=== PATIENT | male | born 1995 | race Caucasian/White ===

== ENCOUNTER 2022-12-29 09:33 | Emergency (ER) | payer BC, MEDICAID ==
[~2022-12-29] VITALS: Ht 185.4 cm; Wt 97.7 kg
[2022-12-29 09:53] LABS: BASOPHILS # (AUTO) 0.1 X10'3 (0-0.2); BASOPHILS % (AUTO) 0.9 % (0-1); EOSINOPHILS % (AUTO) 0.5 % (0-6); HEMATOCRIT 45.5 % (42.0-52.0); HEMOGLOBIN 15.8 g/dl (14.0-17.9); LYMPHOCYTES # (AUTO) 1.6 X10'3 (1.1-4.8); LYMPHOCYTES % (AUTO) 19.8 % (21-51); MEAN CORPUSCULAR HEMOGLOBIN 31.6 PG (27.0-31.0); MEAN CORPUSCULAR HGB CONC 34.7 g/dL (33.0-36.5); MEAN CORPUSCULAR VOLUME 91.2 FL (78-98); MEAN PLATELET VOLUME 7.5 FL (7.4-10.4); MONOCYTES # (AUTO) 0.7 X10'3 (0-0.9); MONOCYTES % (AUTO) 8.2 % (2-12); NEUTROPHILS # (AUTO) 5.8 X10'3 (1.8-7.7); NEUTROPHILS % (AUTO) 70.6 % (42-75); PLATELET COUNT 275 X10'3 (140-440); RED BLOOD COUNT 4.99 X10'6 (4.70-6.10); RED CELL DISTRIBUTION WIDTH 12.9 % (11.5-14.5); WHITE BLOOD COUNT 8.3 X10'3 (4.5-11.0)
[2022-12-29 10:25] LABS: ALBUMIN 4.4 G/DL (3.4-5.0); ALBUMIN/GLOBULIN RATIO 1.7 (1.1-1.5); ALKALINE PHOSPHATASE 75 IU/L (46-116); ASPARTATE AMINO TRANSFERASE 18 U/L (10-37); BILIRUBIN,TOTAL 0.7 MG/DL (0.1-1.0); BLOOD UREA NITROGEN 11 MG/DL (7-18); BUN/CREATININE RATIO 12.4 (10.0-20.0); CALCIUM 9.2 MG/DL (8.5-10.1); CHLORIDE 102 MMOL/L (99-107); CREATININE 0.89 MG/DL (0.60-1.10); GLUCOSE 99 MG/DL (70-104); MAGNESIUM 1.8 MG/DL (1.5-2.4); POTASSIUM 4.2 MMOL/L (3.5-5.1); TOTAL CARBON DIOXIDE 32.8 MMOL/L (24-32); eGFR > 90 ML/MIN
[2022-12-29 10:37] LABS: ALANINE AMINOTRANSFERASE < 6 U/L (12-78); ANION GAP 3 (8-16); SODIUM 138 MMOL/L (135-145)
[2022-12-29] MEDS ORDERED: IBUP-1986 PO (10:54)
[2022-12-29] MEDS ORDERED: ketorolac trometh inj. 60 MG/2 ML VIAL IM ONE (11:00)
[2022-12-29 11:15] VITALS: BP 109/68
== END 2022-12-29 11:17 | disposition home or self-care (01) ==
LOC: ER 09:34
DX: R07.89 Other chest pain (principal); Z87.442 Personal history of urinary calculi; Z79.899 Other long term (current) drug therapy
CPT/HCPCS: 36415; 71045; 80053; 83735; 83880; 84484; 85025; 93005; 99285

== ENCOUNTER 2025-03-08 18:30 | Emergency (ER) | payer BC ==
[~2025-03-08] VITALS: Ht 185.4 cm; Wt 90.0 kg
[~2025-03-08 18:30] MED LIST: IBUP-1986 PO
[2025-03-08 18:49] VITALS: BP 129/75; PULSE 71; RESP 16; TEMP 98.6; O2SAT 98
[2025-03-08] MEDS ORDERED: AMOX500C2 PO (19:37)
--- NOTE | 2025-03-08 19:38 | Physician Documentation ---
HPI ~ General Chief Complaint: Tooth Problem Stated Complaint: TOOTH PAIN Time Seen by MD: 19:14 Primary Medical Doctor: BETI History of Present Illness HPI Comment Patient reports dental pain and bleeding in the upper left molar region. He states he has not put in his dentist on Wednesday however denies any fevers or nausea vomiting or any submandibular swelling Medication Reconciliation Allergies: Coded Allergies: No Known Allergies (Unverified , 03/08/25) Scheduled Ibuprofen (Ibuprofen), 1 TAB PO Q8H Past Medical History Past Medical History: No Pertinent History Past Surgical History: no surgical history Alcohol Use: None Drug Use: none Lives In: Home Occupation: employed Physical Exam Vital Signs: Temperature: 98.6, Source: Temporal, Heart Rate: 71, Respiratory Rate: 16, BP: 129/75, Pulse Oximetry: 98, Weight: 90.000 Oxygen Flow Rate: 0 Physical Exam HEENT: PERRL, EOMI, no injection, moist mucous membranes. Poor dentition t hroughout oral cavity. Notable erythema and swelling in the upper left molar region Respiratory: Lungs clear, no respiratory distress. Cardiovascular: Regular rate and rhythm, no murmurs. Skin: Normal color, warm and dry. No edema, no ecchymosis. Progress Results/Orders Results/Orders Vital Signs 03/08/25 18:49 Temp 98.6 Pulse 71 Resp 16 B/P (MAP) 129/75 Pulse Ox 98 O2 Flow Rate 0 Medical Decision Making Findings Suspecting a developing tooth abscess going to treat empirically. Patient states he has a an appointment with a dentist on Wednesday Differential Dx:Considerations: Include: Alveolar fracture, Alveolar osteitis, ANUG, Facial Cellulitis, Periapical abscess, Peridontal abscess, Post-extraction bleeding, Pulpitis, Tooth avulsion, Tooth eruption, Tooth Fracture, Trigeminal neuralgia, Tooth subluxation, Other Departure Disposition: 01 HOME / SELF CARE / HOMELESS Impression: Primary Impression: Dental abscess Condition: Stable Discharge Instructions: Dental Caries, Adult Referrals: NO PRIMARY CARE PROVIDER (PCP) Prescriptions Amoxicillin Trihydrate* (Amoxicillin*) 500 Mg Capsule 1 CAP PO Q8H for 10 Days, #30 CAP Prov: IFEANYI BOWMAN NP 03/08/25 Education Educated: Patient Signature Scribe Signature: g Attestation: Scribed for Ifeanyi Bowman Spring Forger by Ifeanyi Beverly NP . 03/08/25 19:37 IFEANYI BOWMAN NP Mar 08, 2025 19:38
== END 2025-03-08 20:08 | disposition home or self-care (01) ==
LOC: ER 18:30
DX: K04.7 Periapical abscess without sinus (principal); Z79.899 Other long term (current) drug therapy
CPT/HCPCS: 99283

== ENCOUNTER 2025-05-18 14:00 | Emergency (ER) | payer BC ==
[~2025-05-18] VITALS: Ht 185.4 cm; Wt 95.7 kg
[2025-05-18 14:02] VITALS: BP 140/92; PULSE 110; TEMP 97.1; O2SAT 99
--- NOTE | 2025-05-18 14:10 | Physician Documentation ---
History of Present Illness ~ Stated Complaint: CP ARM TIGHTNESS DIZZINESS Time Seen by MD: 15:06 Primary Medical Doctor: BETI VIDES 29 Male with complaints of chest pain that has been intermittent for approximately 2 weeks this last episode lasting since Wednesday but constant. Patient states there has been times that his pain was reproducible with movement and breathing. Patient also states that he feels like his heart rate is elevated and checks his watch routinely currently he states his heart rate on his watch his 113. Patient himself does not have any cardiac or respiratory history but states he has strong family history with his mom having a pacemaker. Medication Reconciliation Allergies: Coded Allergies: No Known Allergies (Unverified , 05/18/25) Scheduled Ibuprofen (Ibuprofen), 1 TAB PO Q8H Past Medical History Past Medical History: No Pertinent History Past Surgical History: no surgical history Alcohol Use: None Drug Use: none Lives In: Home Occupation: employed Physical Exam Physical Exam General: Alert, no apparent distress. HEENT: moist mucous membranes. Neck: Full range of motion. Respiratory: No respiratory distress speaking in full sentences Chest: No accessory muscle use. Cardiovascular: Appears well perfused Neurologic: Oriented x4. Psychiatric: Normal mood and affect. Skin: Normal color, warm and dry. No edema, no ecchymosis. Progress Results/Orders Results/Orders Orders - DEE THAPA INK MAKER Chest,Single View (05/18/25 14:14) Monitor (05/18/25 14:14) Saline Lock (05/18/25 14:14) Oxygen (05/18/25 14:14) Hs Troponin I W Calculations (05/18/25 17:14) Completed Orders - DEE THAPA INK MAKER Chest,Single View (05/18/25 14:14) Cbc/Diff (05/18/25 14:14) BMP (05/18/25 14:14) PBNP (05/18/25 14:14) Electrocardiogram (05/18/25 14:14) Hs Troponin I W Calculations (05/18/25 14:14) Hs Troponin I W Calculations (05/18/25 16:14) Vital Signs 05/18/25 05/18/25 14:02 16:58 Temp 97.1 Pulse 110 Resp 16 14 B/P (MAP) 140/92 Pulse Ox 99 O2 Flow Rate 0 Laboratory Tests Test 05/18/25 14:09 05/18/25 16:12 White Blood Count 7.4 Red Blood Count 5.13 Hemoglobin 16.1 Hematocrit 45.5 Mean Corpuscular Volume 88.7 Mean Corpuscular Hemoglobin 31.3 H Mean Corpuscular Hemoglobin Concent 35.3 Red Cell Distribution Width 13.1 Platelet Count 292 Mean Platelet Volume 7.3 L Neutrophils (%) (Auto) 66.2 Lymphocytes (%) (Auto) 22.4 Monocytes (%) (Auto) 9.6 Eosinophils (%) (Auto) 0.6 Basophils (%) (Auto) 1.2 H Neutrophils # (Auto) 4.9 Lymphocytes # (Auto) 1.6 Monocytes # (Auto) 0.7 Eosinophils # (Auto) 0.0 Basophils # (Auto) 0.1 CBC Comment Sodium Level 141 Potassium Level 4.4 Chloride Level 103 Carbon Dioxide Level 31.9 Anion Gap 6 L Blood Urea Nitrogen 13 Creatinine 0.89 Estimated GFR/1.73 m2 > 90 BUN/Creatinine Ratio 14.6 Glucose Level 94 Calcium Level 9.0 Troponin I High Sensitivity 4 4 Pro-B-Type Natriuretic Peptide 49 Albumin 4.4 Chemistry Comments Troponin I High Sens Percent Delta 0 Troponin I Hi Sens Absolute Change 0 EKG/XRAY/CT/US/VASC/MRI EKG : Additional Comment EKG: Sinus rhythm at 99 beats per minute normal axis no acute ST-T abnormalities Chest X-Ray : Additional Comments DI CHEST,SINGLE VIEW, HISTORY: CP COMPARISON: None None TECHNICAL DATA: 1 view of the chest was obtained. FINDINGS: Lines and tubes: None Cardiomediastinal silhouette: normal Pulmonary vasculature: normal Lung expansion: normal Lung airspace: normal Lung interstitium: normal Pleura: normal Pneumothorax: no Bones: Unremarkable Other: no IMPRESSION: No acute intrathoracic abnormality. Heart Score: Heart Score Response (Comments) Value History Slightly Suspicious 0 EKG Normal 0 Age <45 0 Risk Factors No known risk factors 0 Troponin Normal limit 0 Total 0 Medical Decision Making Findings Patient has a heart score 0 patient's labs are unremarkable for any significant findings chest x-ray is clear. Troponins are negative. This could be costochondritis as there has been a time where his chest pain was reproducible. It has been intermittent for the past couple weeks but steady since Wednesday. Patient's vital signs are also reassuring. We will discharge to follow up with primary care for potential cardiac workup if desired Departure Time of Disposition: 16:45 Disposition: 01 HOME / SELF CARE / HOMELESS Impression: Primary Impression: Chest wall pain Condition: Stable Discharge Instructions: Nonspecific Chest Pain, Adult Additional Instructions: Labs do not indicate any cardiac stress your chest x-ray is negative and your EKG looks good. At this time it does not appear to be an emergent cardiac experience that is causing your chest pain. Due to your family history I would advise you to follow up with primary care for potentially a cardiology referral to evaluate for cardiac workup due to your family history. Rest and stay well hydrated feel free to return to the ER for any new or worsening symptoms Referrals: NO PRIMARY CARE PROVIDER (PCP) Education Educated: Patient, Family Educated regarding: diagnosis, treatment, need for follow up Signature Scribe Signature: No scribe Attestation: The note accurately reflects work and decisions made by me.Dee KIRK 05/18/25 16:46 DEE THAPA NP May 18, 2025 14:10
--- NOTE | 2025-05-18 14:16 | ELECTROCARDIOGRAPH REPORT ---
[facility] Test Date: 2025-05-18 Test Time: 14:05:21 Pat Name: JACOB TOUSSAINT Department: EMERGENCY ROOM Room: Gender: M [employer] Technician: LOLIS : 1995 Requested By: SAMIR THAPA Order Number: [id number] Reading MD: Measurements Intervals [place] Rate: 99 P: 62 MA: 141 QRS: 43 QRSD: 90 T: 54 QT: 319 QTc: 410 Interpretive Statements Sinus rhythm Artifact in lead(s) V3 Please click the below link to view image of tracing.
[2025-05-18 14:23] LABS: MEAN PLATELET VOLUME 7.3 FL (7.4-10.4); RED CELL DISTRIBUTION WIDTH 13.1 % (11.5-14.5)
--- NOTE | 2025-05-18 14:28 | RADIOLOGY REPORT ---
DI CHEST,SINGLE VIEW, HISTORY: CP COMPARISON: None None TECHNICAL DATA: 1 view of the chest was obtained. FINDINGS: Lines and tubes: None Cardiomediastinal silhouette: normal Pulmonary vasculature: normal Lung expansion: normal Lung airspace: normal Lung interstitium: normal Pleura: normal Pneumothorax: no Bones: Unremarkable Other: no IMPRESSION: No acute intrathoracic abnormality.
[2025-05-18 14:39] LABS: CREATININE 0.89 MG/DL (0.60-1.10); PRO BRAIN NATRIURETIC PEPTIDE 49 PG/ML (0-125); TOTAL CARBON DIOXIDE 31.9 MMOL/L (24-32); eCRCL 137 ML/MIN; eGFR > 90 ML/MIN
[2025-05-18 16:58] VITALS: RESP 14
== END 2025-05-18 17:26 | disposition home or self-care (01) ==
LOC: ER 14:01
DX: R07.89 Other chest pain (principal); R06.02 Shortness of breath
CPT/HCPCS: 36415; 71045; 80048; 83880; 84484; 85025; 93005; 99285